=== PATIENT | female | born 1965 | race Two or more races ===

== ENCOUNTER 2024-01-08 10:20 | Emergency (ER) | payer OTHER ==
[~2024-01-08] VITALS: Ht 160 cm; Wt 48.1 kg
[2024-01-08] MEDS ORDERED: 0.9 % SODIUM CHLORIDE 1,000 ML IV STA (10:42)
[2024-01-08] MEDS ORDERED: DEXAMETHASONE SODIUM PHOSPHATE 4 MG/ML VIAL IV STA (10:43)
[2024-01-08] MEDS ORDERED: ACYCLOVIR SODIUM 500 MG VIAL IV STA (10:43)
[2024-01-08] MEDS ORDERED: KETOROLAC TROMETHAMINE 30 MG VIAL IV ONE (10:45)
[2024-01-08 11:16] LABS: HEMATOCRIT 38.6 % (36.0-45.00); HEMOGLOBIN 13.4 g/dL (12.0-15.00); MEAN CELL VOLUME 87.4 fL (80.00-100.00); MEAN CORPUSCULAR HEMOGLOBIN 30.4 pg (27.00-32.0); MEAN CORPUSCULAR HGB CONC 34.8 g/dl (32.0-36.0); PLATELET COUNT 271 K/uL (150-450); RED BLOOD COUNT 4.41 M/uL (4.00-6.00); RED CELL DISTRIBUTION WIDTH 13.3 % (11.5-14.5)
[2024-01-08 11:31] LABS: CALCIUM 9.3 mg/dL (8.5-10.1); CREATININE SERUM 0.69 mg/dL (0.55-1.02); GFR 86.78; POTASSIUM 3.38 mEq/L (3.5-5.1)
== END 2024-01-08 15:06 | disposition home or self-care (01) ==
LOC: ER 10:20
PROVIDERS: General Practice
DX: B02.39 Other herpes zoster eye disease (principal); R11.10 Vomiting, unspecified; Z88.6 Allergy status to analgesic agent; Z88.8 Allergy status to other drugs, medicaments and biological substances